=== PATIENT | female | born 2000 | race Caucasian/White ===

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

== ENCOUNTER 2019-01-20 17:28 | Emergency (ER) | payer BC ==
[2019-01-20] MEDS: CEFTRIAXONE 250 MG INJ IM (18:39)
[2019-01-20] MEDS: DEXAMETHASONE 10 MG/ML 1 ML INJ IM (18:39)
[2019-01-20] MEDS: LIDOCAINE 1% (MDV) 20 ML INJ SC (18:39)
== END 2019-01-20 19:20 | disposition home or self-care (01) ==
LOC: FTE 17:28
DX: J03.90 Acute tonsillitis, unspecified (principal)
CPT/HCPCS: 96372; 99284-25